=== PATIENT | male | born 1995 | race Caucasian/White ===

== ENCOUNTER 2024-11-09 11:34 | Emergency (ER) | payer OTHER, SELFPAY ==
[2024-11-09 11:44] VITALS: BP 116/65
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
[2024-11-09 14:53] VITALS: BP 114/65
[2024-11-09 15:08] LABS: ALT (SGPT) 17 U/L (0-50); AST (SGOT) 24 U/L (17-59); Albumin 4.5 g/dl (3.5-5.0); Alkaline Phosphatase 39 U/L (38-126); Direct Bilirubin 0.1 mg/dl (0.0-0.4); Total Bilirubin 0.6 mg/dl (0.2-1.3); Total Protein 7.2 g/dl (6.3-8.2)
[2024-11-09 16:54] LABS: HIV Combo Reactive (Negative)
[2024-11-10 10:24] LABS: Hepatitis B Surface Antigen Negative (Negative)
[2024-11-10 10:42] LABS: Hepatitis B Surface Antibody Negative; Hepatitis C Antibody Negative (Negative)
[2024-11-10 18:40] LABS: Hepatitis A IgM Antibody Negative (Negative); Hepatitis B Core Ab, IgM Negative (Negative)
[2024-11-11 12:05] LABS: HIV Serologic Interpretation Pos HIV-1 Ab; HIV-1 Antibody Positive (Negative); HIV-2 Antibody Negative (Negative)
== END 2024-11-09 15:31 ==
LOC: EMR 11:34
PROVIDERS: Physician Assistant; EMERGENCY PHYSICIAN Emergency Medicine
DX: K13.0 Diseases of lips (principal); T76.21XA Adult sexual abuse, suspected, initial encounter; K13.79 Other lesions of oral mucosa; Z21 Asymptomatic human immunodeficiency virus [HIV] infection status
CPT/HCPCS: 99283; 80076; 86701; 86702; 86705; 86706; 86709; 86803; 87340; 87389